=== PATIENT | female | born 1955 | race Caucasian/White ===

== ENCOUNTER 2019-02-27 12:03 | Day surgery (SDC) | payer OTHER, BC ==
[~2019-02-27 12:03] MED LIST: LIDOCAINE 2% (SDV) 5 ML INJ
[2019-02-27] MEDS ORDERED: PROPOFOL 20 ML (14:26)
== END 2019-02-27 16:14 | disposition home or self-care (01) ==
LOC: GIL 12:03
DX: R19.4 Change in bowel habit (principal); K64.8 Other hemorrhoids; K44.9 Diaphragmatic hernia without obstruction or gangrene; K21.9 Gastro-esophageal reflux disease without esophagitis; I10 Essential (primary) hypertension; E11.9 Type 2 diabetes mellitus without complications; I25.10 Atherosclerotic heart disease of native coronary artery without angina pectoris
CPT/HCPCS: 43239; 82962; 88305; 88312